=== PATIENT | female | born 1970 | race Caucasian/White ===

== ENCOUNTER 2017-02-26 09:36 | Emergency (ER) | payer OTHER ==
--- NOTE | 2017-02-26 10:27 | EDPHY ---
H & P Stated Complaint: Twisted L ankle - Personal History LMP (Females 10-55): IUD In Place Current Tetanus Diphtheria and Acellular Pertussis (TDAP): Yes - Medical/Surgical History Other PMH: anxiety - Social History Smoking Status: Former smoker HPI/ROS: Chief complaint: Left ankle injury History of present illness: This is a 46-year-old female who presents to the emergency department for left ankle injury. Patient fell down some steps and twisted her ankle. Since then she has had pain and swelling to the outer aspect of the ankle. It is tender to touch. It makes it difficult to ambulate. There is no open wounds. No paresthesias. No abnormal coolness in the foot. No report of trauma to other parts of the body including the knee, lower leg or foot. (Perico Farfan) - Physical Exam Exam: General appearance: Alert, nontoxic Musculoskeletal: There is contusion and edema to the lateral aspect of the left ankle just inferior and anterior to the lateral malleolus. The patient is moving the ankle well in all knott. Achilles tendon is intact to palpation. The knee and foot are unremarkable and she is moving digits in the foot well. Vascular exam: Normal pulses and capillary refill in the foot Neurologic exam: The patient has normal sensation and motor function distal to the injury. (Perico Farfan) Constitutional: Initial Vital Signs Temperature (C) 36.7 C 02/26/17 09:41 Heart Rate 79 02/26/17 09:41 Respiratory Rate 18 02/26/17 09:41 Blood Pressure 111/60 02/26/17 09:41 O2 Sat (%) 98 02/26/17 09:41 O2 Delivery Mode Room Air Allergies/Adverse Reactions: No Known Allergies Allergy (Unverified 02/26/17 09:40) Home Medications: Medication Instructions Recorded Escitalopram Oxalate [Lexapro] 10 mg PO 02/26/17 Medical Decision Making - Diagnostics Imaging: I viewed and interpreted images myself - Diagnostics Imaging Results: Imaging Impressions Ankle X-Ray 02/26/17 09:43 Impression: 1. Calcific fragment adjacent to the lateral margin of the calcaneus possibly representing avulsion fracture from the fibular calcaneal ligament or chip fracture. However, there is not much soft tissue swelling in this area. This could just represent incidental ossicle. Clinical correlation recommended. 2. No additional abnormality seen. These findings were discussed by telephone with Perico Farfan PA-C at 1017 hrs. Procedures: Procedure: Splint placement. A walking boot splint was applied. After application of the splint I returned and re-examined the patient. The splint was adequately immobilizing the joint and distal to the splint the patient's circulation and sensation was intact. Crutches were given (Perico Farfan) ED Course/Re-evaluation: Patient seen under the supervision of my secondary supervising physician Dr. Ousmane Pandey. Patient presents to the emergency department for a left ankle injury. Concern for avulsion fracture. Patient placed in a walking boot and given crutches. Home care is discussed. She is referred to Orthopedics for recheck. Return precautions are given. (Perico Farfan) I did not see this patient while she was in the emergency department. However her care was discussed with the PA while the patient was in the department. I agree with treatment plan and management (Ousmane Pandey) Differential Diagnosis: Included but not limited to contusion, sprain or strain, bony fracture (Perico Farfan) Departure - Departure Disposition: Home, Routine, Self-Care Clinical Impression: Ankle fracture Qualifiers: Encounter type: initial encounter Fracture type: closed Laterality: left Qualified Code(s): S82.892A - Other fracture of left lower leg, initial encounter for closed fracture Condition: Good Instructions: Ankle Fracture (ED) Additional Instructions: Follow-up with orthopedics for continued evaluation and care Use ibuprofen 600 mg 3 times a day for the next 2-3 days for pain control Elevate the injury as much as possible Ice the injury, 20 minutes on, 3 times daily If symptoms worsen or new symptoms develop return to the emergency room for recheck Referrals: Ruthie Wright PA [Primary Care Provider] - As per Instructions Art Paredes MD [Medical Doctor] - As per Instructions
[2017-02-26 11:00] VITALS: BP 111/55; PULSE 71; RESP 16; TEMP 97.2; O2SAT 95
== END 2017-02-26 11:00 | disposition home or self-care (01) ==
DX: S82.892A Other fracture of left lower leg, initial encounter for closed fracture (principal); Z87.891 Personal history of nicotine dependence; W10.8XXA Fall (on) (from) other stairs and steps, initial encounter
CPT/HCPCS: L4386

== ENCOUNTER → 2017-03-09 | Outpatient (CLI) | payer OTHER | LOC: FIMAGING 08:48 | PROVIDERS: ATTEND Obstetrics & Gynecology Gynecology | DX: Z12.31 Encounter for screening mammogram for malignant neoplasm of breast (principal) | CPT/HCPCS: G0202 ==

== ENCOUNTER → 2018-03-29 | Outpatient (CLI) | payer OTHER | LOC: FIMAGING 13:04 | PROVIDERS: ATTEND Obstetrics & Gynecology Gynecology | DX: Z12.31 Encounter for screening mammogram for malignant neoplasm of breast (principal) ==